=== PATIENT | male | born 1975 | race Caucasian/White ===

== ENCOUNTER 2016-12-28 08:36 | Emergency (ER) | payer BC ==
[2016-12-28 08:42] VITALS: BP 132/95; PULSE 70; TEMP 98.5; BMI 26.6
[2016-12-28] MEDS ORDERED: IBUPROFEN 600 MG TABLET (FP) PO ONE ×2 (08:48→09:01)
--- NOTE | 2016-12-28 09:11 | PDOC ---
History of Present Illness - General Chief Complaint: Pain Stated Complaint: PAIN BEHIND BOTH EARS Time Seen by Provider: 12/28/16 08:43 History Source: Patient Exam Limitations: No Limitations - History of Present Illness Initial Comments: 12/28/16 08:58 This is a 41-year-old otherwise healthy male who presents emergency department with a complaint of pain towards the back of his head. Patient states he was in his usual state of health until approximately 5 days ago. He noted that he's had an upper respiratory infection for which she's been taking Mucinex. He has had no history of sinusitis and has had no facial pain. He denies fevers or chills. 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 HEAD, EYES, EARS, NOSE AND THROAT: Yes: congestion No: change in vision, ear pain, discharge, sore throat, throat swelling. CARDIOVASCULAR: No: chest pain, lightheadedness, palpitations, syncope RESPIRATORY: No: cough, shortness of breath, wheezing, hemoptysis, stridor. GASTROINTESTINAL: No: nausea, vomiting, diarrhea, abdominal cramping, rectal bleeding, constipation. GENITOURINARY: No: dysuria, hematuria, frequency, urgency, flank pain. MUSCULOSKELETAL: No: back pain, neck pain, joint pain, muscle swelling or pain SKIN: No: erythema over mastoid Yes: skin lesion forehead near hair line NEUROLOGIC: No: headache, vertigo, paresthesias, weakness ENDOCRINE: No: unexplained weight gain or loss HEMATOLOGIC/LYMPHATIC: No: anemia, easy bleeding, swelling nodes. GENERAL: The patient is in no acute distress. HEAD: Normal with no signs of trauma. EYES: PERRLA, EOMI, sclera anicteric, conjunctiva clear. ENT: Ears normal, TMs nml, ? mastoid tenderness NECK: Normal range of motion, supple without lymphadenopathy, JVD, or masses. LUNGS: Breath sounds equal, clear to auscultation bilaterally. No wheezes, and no crackles. HEART:Regular rate and rhythm, normal S1 and S2 without murmur, rub or gallop. ABDOMEN: Soft, nontender, normoactive bowel sounds. No guarding, no rebound. No masses palpable. EXTREMITIES: Normal range of motion, no edema. No clubbing or cyanosis. No erythema, or tenderness. NEUROLOGICAL: Cranial nerves II through XII grossly intact. Normal speech. No focal neurological deficits. MUSCULOSKELETAL: Back non-tender to palpation, no CVA tenderness SKIN: Skin overlying mastoid non tender, forehead near left hair line - erythematous macular lesions x 4 Past History - Past Medical History Allergies/Adverse Reactions: Allergies Allergy/AdvReac Type Severity Reaction Status Date / Time No Known Allergies Allergy Verified 12/28/16 08:37 Home Medications: Ambulatory Orders NK [No Known Home Medication] 12/28/16 Other medical history: DENIES - Immunization History Immunization Up to Date: Yes - Psycho/Social/Smoking Cessation Hx Anxiety: No Suicidal Ideation: No Smoking History: Never smoked Have you smoked in the past 12 months: No Information on smoking cessation initiated: No Hx Alcohol Use: Yes (SOCIAL) Drug/Substance Use Hx: No Substance Use Type: Alcohol *Physical Exam - Vital Signs Last Vital Signs Temp Pulse Resp BP Pulse Ox 98.5 F 70 20 132/95 100 12/28/16 08:36 12/28/16 08:36 12/28/16 08:36 12/28/16 08:36 12/28/16 08:36 ED Treatment Course - RADIOLOGY Radiology Studies Ordered: Category Date Time Status HEAD CT WITHOUT CONTRAST [CT] Stat CT Scan 12/28/16 08:47 Ordered Medical Decision Making - Medical Decision Making 12/28/16 09:11 Bilateral mastoid tenderness in the setting of recent URI Will do: CT r/o mastoiditis Motrin for pain Re assess 12/28/16 09:56 CT negative Will discharge to home Follow up with PMD Return to the ER for any other concerns or complaints *DC/Admit/Observation/Transfer Diagnosis at time of Disposition: Mastoid pain Qualifiers: Laterality: bilateral Qualified Code(s): H92.03 - Otalgia, bilateral - Discharge Dispostion Disposition: HOME Condition at time of disposition: Improved Admit: No - Patient Instructions Printed Discharge Instructions: DI for Mastoiditis-Adult, DI for Ear Pain-Adult Additional Instructions: Thank you for coming to the ER today Monitor yourself for local redness, increase swelling, increased pain, hearing changes Return to the ER for any other concerns or complaints - Post Discharge Activity Work/School Note: Back to Work
== END 2016-12-28 10:16 | disposition home or self-care (01) ==
LOC: FER 08:36
DX: H92.03 Otalgia, bilateral (principal)
CPT/HCPCS: 70480-TC; 99282-25

== ENCOUNTER 2017-04-18 19:02 | Emergency (ER) | payer OTHER, BC ==
[2017-04-18 19:14] VITALS: BP 139/99; PULSE 93; TEMP 98; BMI 28.2
[2017-04-18] MEDS ORDERED: IBUPROFEN 600 MG TABLET (FP) PO ONE (19:15)
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
== END 2017-04-18 20:05 | disposition home or self-care (01) ==
LOC: FER 19:02
DX: S83.8X2A Sprain of other specified parts of left knee, initial encounter (principal); V43.52XA Car driver injured in collision with other type car in traffic accident, initial encounter; W22.10XA Striking against or struck by unspecified automobile airbag, initial encounter; Y93.89 Activity, other specified; Y92.410 Unspecified street and highway as the place of occurrence of the external cause; Y99.0 Civilian activity done for income or pay
CPT/HCPCS: 73560-TC-LT; 99281-25

== ENCOUNTER 2020-06-29 07:44 | Emergency (ER) | payer BC, OTHER ==
[2020-06-29 08:02] VITALS: BP 124/76; PULSE 77; TEMP 98.3; BMI 29.0
--- NOTE | 2020-06-29 08:02 | PDOC ---
History of Present Illness - General Chief Complaint: Rectal Bleed Stated Complaint: rt 2nd finger redness History Source: Patient Exam Limitations: No Limitations - History of Present Illness Initial Comments: 06/29/20 07:57 44 yo male no pmhx here with right index finger swelling and redness. has had for 2 - 3 days. more painful today. no f/c has had similar in the past resulting in cellulitis. 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 no f/c no diabetes. no other complaints. no new numbness or tingling. Past History - Medical History Allergies/Adverse Reactions: Allergies Allergy/AdvReac Type Severity Reaction Status Date / Time No Known Allergies Allergy Verified 06/29/20 07:46 Home Medications: Ambulatory Orders Ibuprofen [Motrin -] 600 mg PO TID PRN #60 tablet 06/29/20 Sulfamethoxazole/Trimethoprim [Bactrim Ds Tablet] 1 each PO BID #12 tablet 06/29/20 - Immunization History Immunization Up to Date: Yes - Psycho-Social/Smoking History Smoking History: Never smoked Have you smoked in the past 12 months: No Review of Systems - Review of Systems Constitutional: No: Chills, Diaphoresis HEENTM: No: Eye Pain Respiratory: No: Cough, Shortness of Breath Cardiac (ROS): No: Chest Pain : No: Burning, Dysuria, Discharge Musculoskeletal: No: Back Pain Integumentary: Yes: Other (nail finger redness and swelling. ). No: Bruising, Change in Color Neurological: No: Numbness *Physical Exam - Physical Exam 06/29/20 07:58 awake alert right index finger with paronychia radial side nail, significant s welling. erythema limited to distal phalynx. n/v intact. Procedures - Incision and Drainage I&D Site: Right: Paronychia Betadine cleansed: Yes Anesthesia: 1% Lidocaine Volume(ml): 3 (digital block) Blade Size: 11 Attempts: 1 Plain Packing: No Complications: none Dressing: Yes Medical Decision Making - Medical Decision Making 06/29/20 07:59 drained paronychia. digital block tolerated well. dressing applied. will dc with soaks, bacitracin and abx bactrim. Discharge - Discharge Information Problems reviewed: Yes Clinical Impression/Diagnosis: Paronychia Condition: Improved Disposition: HOME - Admission No - Additional Discharge Information Prescriptions: Sulfamethoxazole/Trimethoprim [Bactrim Ds Tablet] 1 each PO BID #12 tablet Ibuprofen [Motrin -] 600 mg PO TID PRN #60 tablet PRN Reason: Pain - Follow up/Referral - Patient Discharge Instructions Patient Printed Discharge Instructions: Paronychia Additional Instructions: you should soak your finger in warm mild soapy water twice daily. apply bacitracin or any triple antiobiotics cream to finger nail and skin twice daily. available over the counter. you can take motrin 600 mg every 8 hours as needed for pain. take with food. you should also take bactrim one tablet twice daily x 7 days. ( antiobiotic) return for worsening swelling, redness, streaking fevers or any concerns. - Post Discharge Activity
[2020-06-29] MEDS ORDERED: SULFAMETHOXAZOLE/TRIMETHOPRIM 800MG/160MG D.S. TABLET ONE (08:21)
[2020-06-29] MEDS ORDERED: IBUPROFEN 600 MG TABLET (FP) PO ONE ×2 (08:21→08:23)
[2020-06-29] MEDS ORDERED: SULFAMETHOXAZOLE/TRIMETHOPRIM 800MG/160MG D.S. TABLET PO ONE (08:23)
== END 2020-06-29 08:30 | disposition home or self-care (01) ==
LOC: FER 07:44
PROC: 0H9GXZZ Drainage of Left Hand Skin, External Approach (ICD-10-PCS; principal; 2020-06-29)
DX: L03.039 Cellulitis of unspecified toe (principal)
CPT/HCPCS: 99283-25

== ENCOUNTER 2022-02-25 19:32 | Emergency (ER) | payer BC ==
[2022-02-25 19:46] VITALS: BP 140/88; PULSE 100; TEMP 98; BMI 29.0
[2022-02-25] MEDS ORDERED: NAPROXEN 500 MG TABLET PO ONE (20:05)
[2022-02-25] MEDS ORDERED: NAPROXEN 500 MG TABLET ONE (20:05)
[2022-02-25] MEDS ORDERED: CYCLOBENZAPRINE HCL 10 MG TABLET (FP) PO ONE (21:21)
[2022-02-25] MEDS ORDERED: CYCLOBENZAPRINE HCL 5 MG TABLET ONE (21:22)
== END 2022-02-25 21:25 | disposition home or self-care (01) ==
LOC: FER 19:32
DX: S39.012A Strain of muscle, fascia and tendon of lower back, initial encounter (principal); S46.911A Strain of unspecified muscle, fascia and tendon at shoulder and upper arm level, right arm, initial encounter; W11.XXXA Fall on and from ladder, initial encounter
CPT/HCPCS: 72100-TC-FY; 73030-TC-RT-FY; 99284-25